=== PATIENT | male | born 1960 | race Caucasian/White ===

== ENCOUNTER → 2017-12-23 | Outpatient (CLI) | payer OTHER ==
[~2017-12-23] MED LIST: DIATRIZOATE MEGL/DIATRIZOA SOD 30 ML BTL PO ONE; IOPAMIDOL 370 MG/ML 200 ML INFUS..BTL INJ ONE; SODIUM CHLORIDE 0.9% 50ML 50 ML ONE
--- NOTE | 2017-12-23 14:40 | Diagnostic Imaging Report ---
EXAM: CT Pelvis WITH contrast INDICATION: Perianal lesion COMPARISON: None. TECHNIQUE: Pelvis were scanned utilizing a multidetector helical scanner from the iliac crest to the pubic symphysis after administration of IV contrast. Coronal and sagittal reformations were obtained. Routine protocol was performed. Scan was performed when during portal venous phase. IV CONTRAST: 100 cc Isovue-[id number] ORAL CONTRAST: Gastrografin and water mixture. RADIATION DOSE: Total DLP: 442.28 mGy*cm Estimated effective dose: (DLP x 0.015 x size factor) mSv COMPLICATIONS: None FINDINGS: LINES and TUBES: None. GI TRACT: No abnormal distention, wall thickening, or evidence of bowel obstruction. Appendix is normal. There is a 0.5 cm linear hyperdense focus in the left perianal region on image 52 series 2 which is associated with linear soft tissue estimated at 1.9 cm on image 54 series 2, possibly representing perianal fistula. Foreign There is no perianal fluid collections. PELVIC ORGANS/BLADDER: The prostate is mildly enlarged measuring 4.9 cm in transverse dimensions. LYMPH NODES: No lymphadenopathy. VESSELS: Unremarkable. PERITONEUM / RETROPERITONEUM: No free air or fluid. BONES: Degenerative disc disease and spondylosis at L5-S1 with small posterior disc osteophyte complex. SOFT TISSUES: Small fat-containing right inguinal hernia. IMPRESSION: 1. Findings may reflect a small uncomplicated left perianal fistula without associated fluid collection to suggest abscess. MRI of pelvis without and with contrast perianal fistula protocol review helpful for further characterization if clinically warranted. Signed by: Dr. Laura Jimenez M.D. on 12/23/2017 2:37 PM
== END | disposition home or self-care (01) ==
LOC: CT 10:21
PROVIDERS: ATTEND Internal Medicine Gastroenterology
DX: K62.9 Disease of anus and rectum, unspecified (principal); R03.0 Elevated blood-pressure reading, without diagnosis of hypertension
CPT/HCPCS: 72193; Q9967